=== PATIENT | female | born 1975 | race Caucasian/White ===

== ENCOUNTER 2022-09-01 22:00 | Emergency (ER) | payer MEDICAID ==
[~2022-09-01] VITALS: Ht 160 cm; Wt 67.6 kg
[2022-09-01 23:52] VITALS: BP 125/73
[2022-09-02] MEDS ORDERED: HYDROCODONE/ACETAMINOPHEN 5/325MG TABLET PO ONE (01:15)
[2022-09-02] MEDS ORDERED: METH-653 MT (03:01)
[2022-09-02] MEDS ORDERED: IBUP-2029 MT (03:01)
== END 2022-09-02 03:22 | disposition home or self-care (01) ==
LOC: ER 22:00
DX: M54.12 Radiculopathy, cervical region (principal); Z79.899 Other long term (current) drug therapy
CPT/HCPCS: 72040; 99283